=== PATIENT | female | born 1985 | race Caucasian/White ===

== ENCOUNTER 2019-09-05 18:59 | Observation (INO) | payer BC, SELFPAY ==
[2019-09-05 19:31] VITALS: BP 125/74; PULSE 90
[2019-09-05 19:45] VITALS: BP 119/71; PULSE 87
[2019-09-05 20:00] VITALS: BP 121/73; PULSE 83
--- NOTE | 2019-09-05 22:57 | OBADM ---
This patient, Thelma Witt, admitted to the OB room OB Post 117 for observation. Patient/family oriented to hospital policies and general routines including ID bracelet, bed and alarms, visiting hours, pain management, procedures, bathroom and other care routines, personal items, smoking policy, room service/diet, and visiting hours. Patient/Family are encouraged to report perceived risks to care and to ask questions if they do not understand what they are told or what they should do.
--- NOTE | 2019-09-10 07:32 | PM.OBTRLD ---
OB - Triage/Final Diagnosis Visit Information Date of evaluation: 09/05/19 Reason for evaluation: threatened labor
== END 2019-09-05 20:25 | disposition home or self-care (01) ==
PROVIDERS: Admitting Provider Obstetrics & Gynecology; Visit Provider Obstetrics & Gynecology
DX: O47.03 False labor before 37 completed weeks of gestation, third trimester (principal); Z3A.33 33 weeks gestation of pregnancy
CPT/HCPCS: G0378; G0379

== ENCOUNTER 2019-10-13 05:50 | Inpatient (IN) | payer OTHER, SELFPAY ==
[2019-10-13] VITALS (57 sets, daily range): BP systolic 94–124; BP diastolic 43–86; PULSE 65–119; RESP 16–18; TEMP 36.2–36.9; O2SAT 89–100; BMI 31.0
--- NOTE | 2019-10-13 05:55 | LDADM ---
This patient, Thelma Witt, was admitted to Labor/Delivery/Recovery 104 on 10/13/19 at 05:50. Plans for labor, pain management and were discussed with patient. Patient/family oriented to hospital policies and general routines including ID bracelet, bed and alarms, visiting hours, pain management, procedures, bathroom and other care routines, personal items, smoking policy, room service/diet and guest tray routines, infant security routines, and visiting hours. Patient/Family are encouraged to report perceived risks to care and to ask questions if they do not understand what they are told or what they should do. See OBIX for further documentation.
[2019-10-13] MEDS: LACTATED RINGERS 1,000 ML 125 ML IV CONT ×2 (06:53→09:06)
[2019-10-13 06:54] LABS: Basophils Percent Auto 0.1 % (0.2-1.2); Eosinophils Absolute Auto 0.1 K/mm3 (0-0.3); Eosinophils Percent Auto 1.2 % (0-4.4); Hematocrit 36.2 % (37.0-47.0); Hemoglobin 12.4 g/dL (12.0-15.0); Immature Granulocyte Absolute 0.04 K/mm3 (0.00-0.031); Immature Granulocyte Percent A 0.5 % (0-0.5); Lymphocytes Absolute Auto 1.77 K/mm3 (0.9-3.2); Lymphocytes Percent Auto 24.1 % (18.3-44.2); Mean Corpuscular HGB Conc 34.3 g/dl (32-36); Mean Corpuscular Hemoglobin 33.2 pg (26-34); Mean Corpuscular Volume 96.8 fl (80-100); Mean Platelet Volume 12.1 fl (7.4-10.4); Monocytes Absolute Auto 0.8 K/mm3 (0.1-0.6); Neutrophils Absolute Auto 4.6 K/mm3 (1.3-6.7); Neutrophils Percent Auto 63.1 % (45.5-73.1); Platelet Count Result 168 k/mm3 (150-375); Red Blood Count 3.74 M/mm3 (4.2-5.4); Red Cell Distribution Width 12.5 % (11.5-14.5); White Blood Count 7.3 K/mm3 (4.5-10.0)
[2019-10-13] MEDS: OXYTOCIN 30 UNITS/NS 500 ML 30 UNITS/500 ML BAG IV CONT (06:54)
--- NOTE | 2019-10-13 07:36 | WPDHPUPDATE1 ---
History and Physical Update Update Date/Time: 10/13/19 07:36 This patient is a 34 y/o multiparous female at term - AROM performed. Clear flluid. Reassuring status. History and Physical has been reviewed, including an updated exam of the patient. There are NO changes in the patient's condition. Risks, benefits, and alternatives have been discussed and questions answered. Patient agrees to proceed with procedure.
--- NOTE | 2019-10-13 08:22 | P.PNAN_ITS ---
Anes - Eval Pre Procedure Procedure: Labor epidural Date/Time: 10/13/19 08:22 Surgeon: jose luis arroyo m.d. Preop Diagnosis: pain during labor Pre Op Diagnosis: Induction of Labor Patient Data Age: 34 Gender: F Height: 1.57 m Weight: 77 kg Last Vital Signs Temp 36.2 C L 10/13/19 07:00 Pulse 75 10/13/19 08:15 BP 120/78 10/13/19 08:15 Allergies Allergy/AdvReac Type Severity Reaction Status Date / Time No Known Allergies Allergy Unverified 09/30/19 13:27 Home Medications Medication Instructions Recorded Confirmed Type PNV cmb#95-ferrous fumarate-FA 1 tablet PO DAILY 10/13/19 10/13/19 History [] Laboratory Tests 10/13/19 10/13/19 10/13/19 06:36 06:36 06:37 WBC 7.3 K/mm3 K/mm3 (4.5-10.0) RBC 3.74 M/mm3 L M/mm3 (4.2-5.4) Hgb 12.4 g/dL g/dL (12.0-15.0) Hct 36.2 % L % (37.0-47.0) MCV 96.8 fl fl (80-100) MCH 33.2 pg pg (26-34) MCHC 34.3 g/dl g/dl (32-36) RDW 12.5 % % (11.5-14.5) Plt Count 168 k/mm3 k/mm3 (150-375) MPV 12.1 fl H fl (7.4-10.4) Immature Gran % (Auto) 0.5 % % (0-0.5) Neut % (Auto) 63.1 % % (45.5-73.1) Lymph % (Auto) 24.1 % % (18.3-44.2) [place] % (Auto) 11.0 % H % (2.6-8.5) Eos % (Auto) 1.2 % % (0-4.4) Baso % (Auto) 0.1 % L % (0.2-1.2) Lymph # (Auto) 1.77 K/mm3 K/mm3 (0.9-3.2) [place] # (Auto) 0.8 K/mm3 H K/mm3 (0.1-0.6) Eos # (Auto) 0.1 K/mm3 K/mm3 (0-0.3) Baso # (Auto) 0.0 K/mm3 K/mm3 (0.0-0.1) Abs Immat Gran (auto) 0.04 K/mm3 H K/mm3 (0.00-0.031) Absolute Neuts (auto) 4.6 K/mm3 K/mm3 (1.3-6.7) Absolute Nucleated RBC 0.0 K/mm3 K/mm3 (0.0-0.012) Nucleated RBC % 0.0 % % (0.0-0.2) RPR Pending Blood Type A Positive Antibody Screen Negative Patient hx anesthesia problems: none Family hx anesthesia problems: none PMFSH Family History Family History (Updated 10/11/19 @ 15:43 by Chelo Ghosh RN) Mother FHx: kidney cancer Mother Breast cancer Social History Social History (System 09/30/19 @ 13:27 by Jessica Hale) Smoking status: Never smoker Second hand tobacco smoke exposure: Yes Substance use: never Gender identity (if verbalized by the patient): Female Sexual Orientation (if Verbalized by the Patient): Straight or Heterosexual Spiritual care concerns: No Exam Day of Procedure 10/13/19 08:22
[2019-10-13 08:50] LABS: Rapid Plasma Reagin Non-Reactive (NonReactive)
--- NOTE | 2019-10-13 12:42 | P.PCNOB_ITS ---
OB - Delivery Note Procedure Delivery date: 10/13/19 events: No Care Intrapartal events: None Induction method: AROM and per pitocin protocol Delivery monitor: external FHT and external uterine Route of delivery: Laceration description: None Estimated blood loss (mL): 100 Anesthesia type: Epidural [place] Baby Date of : 10/13/19 Time of : 12:36 Weeks of gestation at delivery: 39 Infant gender: Male presentation: vertex position: Left Occiput Anterior Placenta delivery description: Spontaneous cord vessel description: 3 Vessels score one minute: 8 score five minutes: 9
[2019-10-13] MEDS: OXYTOCIN 30 UNITS/NS 500 ML 30 UNITS/500 ML BAG 125 UNITS IV CONT (12:56)
--- NOTE | 2019-10-13 17:11 | PC.NURSE ---
1542 Pt admitted to room 287 per wheelchair from labor and delivery after vaginal delivery of viable male at [address] Lamas. Mother is a and is choosing to breast feed . /FOB present. couple oriented to room, staffing and procedures; admission folder reviewed with them. Pt's VSS and assessment WNL. Mother is planning on having a Bilateral Tubal Ligation tomorrow. Epidural in place.
--- NOTE | 2019-10-13 17:13 | PC.NURSE ---
1545 Pt reports having breast implants placed 2 years ago, and that her incisions are under her breasts.
--- NOTE | 2019-10-13 19:05 | PC.NURSE ---
Pt noted to have epidural that remains in place with all caps intact and dressing occlusive. No s/s infection noted.
[2019-10-13] MEDS: IBUPROFEN 600 MG TABLET PO (19:25)
[2019-10-13] MEDS: LANOLIN (LANSINOH) 7.5 GM CREAM 1 APPLIC TOPICAL (19:25)
[2019-10-13] MEDS: ACETAMINOPHEN 325 MG TABLET 650 MG PO (23:25)
[2019-10-13] MEDS: TETANUS,DIPHTHERIA,AC PERTUSSIS ADULT (0.5 ML) BOOSTRIX IM (23:32)
[2019-10-14] VITALS (9 sets, daily range): BP systolic 93–123; BP diastolic 54–74; PULSE 68–98; RESP 10–18; TEMP 36.3–36.7; O2SAT 96–100
[2019-10-14] MEDS: IBUPROFEN 600 MG TABLET PO ×2 (03:33→16:14)
[2019-10-14] MEDS: WITCH HAZEL 40 PADS 1 PAD TOPICAL (03:34)
[2019-10-14] MEDS: BENZOCAINE 20% AER SPR (*SP) 56 GM CAN 1 SPRAY TOPICAL (03:34)
[2019-10-14 05:27] LABS: Hematocrit 35.6 % (37.0-47.0); Hemoglobin 11.9 g/dL (12.0-15.0)
--- NOTE | 2019-10-14 07:25 | PM.OBPNVD ---
OB - PN: Subj Subjective Date/time seen: 10/14/19 07:25 Patient comments: no complaints baby status: doing well Narrative: plan BTL today OB - PN: Obj Data Labs CBC & Chem 7: 10/14/19 03:50 Labs: Laboratory Results - last 24 hr 10/13/19 10/13/19 10/14/19 06:36 06:36 03:50 Hgb 11.9 L Hct 35.6 L RPR Non-reactive Blood Type A Positive Antibody Screen Negative OB - PN A/P Plan Plan: routine care Comments: Dr. Lamas to do BTL today Time Spent With Patient Time: Total time spent is greater than 50% in coordination of care (as documented) at patient's floor/unit and/or counseling patient:
[2019-10-14] MEDS: LACTATED RINGERS 1,000 ML 30 ML IV CONT (10:35)
--- NOTE | 2019-10-14 11:23 | WPDANESEPPF ---
Anes - Initial Pre Proc Eval Procedure: Operation Date: 10/14/19 12:00 Proposed Procedures p Post- Tubal Ligation - Rocio Lamas MD Date/Time: 10/14/19 11:23 Surgeon: Rocio Lamas MD Pre Op Diagnosis: Induction of Labor Patient Data Age: 34 Gender: F Height: 5 ft 2 in Weight: 77 kg Last Vital Signs Temp 97.4 F L 10/14/19 08:57 Pulse 81 10/14/19 08:57 Resp 18 10/14/19 08:57 BP 115/71 10/14/19 08:57 Pulse Ox 100 10/14/19 08:57 Allergies Allergy/AdvReac Type Severity Reaction Status Date / Time No Known Allergies Allergy Unverified 10/14/19 10:44 Home Medications Medication Instructions Recorded Confirmed Type PNV cmb#95-ferrous fumarate-FA 1 tablet PO DAILY 10/13/19 10/13/19 History [] Laboratory Tests 10/14/19 03:50 Hgb 11.9 g/dL L g/dL (12.0-15.0) Hct 35.6 % L % (37.0-47.0) Patient hx anesthesia problems: none Family hx anesthesia problems: none PMFSH Past Medical History Medical History (Updated 10/14/19 @ 11:38 by Ovi Simmons MD) Healthy adult Family History Family History (Updated 10/11/19 @ 15:43 by Chelo Ghosh RN) Mother FHx: kidney cancer Mother Breast cancer Social History Social History (System 09/30/19 @ 13:27 by Jessica Hale) Smoking status: Never smoker Second hand tobacco smoke exposure: Yes Substance use: never Gender identity (if verbalized by the patient): Female Sexual Orientation (if Verbalized by the Patient): Straight or Heterosexual Spiritual care concerns: No Anes - Eval Final PreProcedure Day of Procedure 10/14/19 11:23 Patient weight: normal Heart: regular rate and rhythm Lungs: clear to auscultation Airway: Mallampati scale class II Neurological: alert and oriented Last oral intake: >/= 8 hours ASA classification: II Emergent: no Anesthetic plan: proceed Anesthesia type and monitoring: regional (use existing epidural; if fails will proceed with GA) epidural and standard monitoring Informed Consent: The patient's anesthetic plan and its attendant risks and benefits were discussed with the patient/family/POA. Questions were solicited and answers provided to the satisfaction of the patient/family/POA.
--- NOTE | 2019-10-14 11:57 | WPDANESEFPP ---
Anes - Eval Final PreProcedure Day of Procedure 10/14/19 11:57 Patient weight: overweight Heart: regular rate and rhythm Lungs: clear to auscultation Airway: Mallampati scale class II Neurological: alert and oriented Last oral intake: >/= 8 hours ASA classification: II Emergent: no Anesthetic plan: proceed Anesthesia type and monitoring: regional epidural and standard monitoring Informed Consent: The patient's anesthetic plan and its attendant risks and benefits were discussed with the patient/family/POA. Questions were solicited and answers provided to the satisfaction of the patient/family/POA.
--- NOTE | 2019-10-14 13:00 | PM.PROC ---
Procedure Note - Detailed Date of procedure: 10/14/19 Pre-op diagnosis: Induction of Labor Unwanted fertility, term delivered Post-op diagnosis: same Procedure performed: tubal ligation Description of procedure: The patient was taken to the operating room. She was prepped and draped in the dorsal spine position. A curvilinear infraumbilical incision was made with the scalpel. The fascia superiorly inferiorly was grasped with Allis clamps. The fascia was transected Metzenbaum scissors. The preperitoneal fat was dissected bluntly the peritoneal cavity was entered bluntly. The fascial incision was extended laterally with Metzenbaum scissors. The fallopian tubes was palpated and dressed. It was brought to the abdominal incision. It was grasped with a [place] clamp. This was in the ampullary region and a window was made in the broad ligament with cautery. The proximal distal ends of the skeletonized tube were ligated with Vicryl. Segment of ligated tube was resected with Metzenbaum scissors. The proximal distal ends of the tube were cauterized. When the tube was hemostatic that was lab to fall back into the abdomen. The tube on the contralateral side was ligated in identical fashion. The fascia was closed with an 0 Vicryl running fashion. Subcutaneous tissue was irrigated. Blood. The cauterized. Skin was closed subcuticular 4 Monocryl. It was covered with Dermabond. Sponge lap and needle counts were correct. The patient was taken the recovery room stable condition. Anesthesia: GETA Surgeon: Rocio Lamas MD Estimated blood loss (mL): 20 Drains: No Packing: No Pathology: yes Complications: No immediate complications Condition: stable Disposition: floor Findings: Normal appearing maternal anatomy
--- NOTE | 2019-10-14 13:12 | SUR.PHASEI ---
1310: Dr. Simmons at the bedside and notified about patient's headache.
--- NOTE | 2019-10-14 15:09 | WPDANLDPN2 ---
Anes-Prog Note L&D Date/Time: 10/14/19 15:09 Comfortable throughout: labor and delivery Neuraxial method: epidural Epidural/Spinal procedure site: clean & non-tender Neuro status: Neuro function grossly intact. Cardiovascular status: normal Respiratory status: normal Airway patency: baseline Mental status: baseline Post-Op hydration status: normal Vital Signs: Last Vital Signs Temp 97.5 F L 10/14/19 12:48 Pulse 74 10/14/19 13:35 Resp 14 10/14/19 13:35 BP 101/63 10/14/19 13:35 Pulse Ox 100 10/14/19 13:35 I/O: Intake & Output 10/13/19 10/14/19 10/14/19 23:59 07:59 15:59 Intake Total 500 50 Balance 500 50 Post-procedural complaints: none Patient feedback: Patient satisfied with anesthetic care.
[2019-10-15] MEDS: IBUPROFEN 600 MG TABLET PO (05:46)
--- NOTE | 2019-10-15 08:29 | PM.OBPNVD ---
OB - PN: Subj Subjective Date/time seen: 10/15/19 08:29 OB - PN: Obj Data Labs CBC & Chem 7: 10/14/19 03:50 OB - PN A/P Plan day: 2 Plan: routine care and discharge home (Follow up in 4 weeks.) Time Spent With Patient Time: Total time spent is greater than 50% in coordination of care (as documented) at patient's floor/unit and/or counseling patient: Review of Systems Review of Systems: All systems reviewed & are unremarkable except as noted in HPI and below Exam Narrative: Exam Narrative: Fundus firm and vaginal flow controlled. Const: General: comfortable Resp: Effort & Inspection: normal respiratory effort Cardio: Rate: regular rate GI: Auscultation: normal bowel sounds : General: Yes bladder normal to inspection Psych: Appearance: grossly normal Affect: normal affect Attitude: cooperative Judgement: Good judgement present (Psych)
[2019-10-15 08:45] VITALS: BP 124/70; PULSE 97; RESP 18; TEMP 36.4; O2SAT 97
[2019-10-15] MEDS: MULTIVIT/MIN/PREN/FOL AC/IRON TABLET 1 TAB PO (08:59)
--- NOTE | 2019-10-15 09:35 | PC.NURSE ---
Observed mother is able to independently latch with appropriate positioning/alignment. She denies any nipple discomfort, is feeding as required and waking infant to feed if needed. Mother reports this to be 3rd child to breastfeed. has had at least 8 effective feedings in the past 24 hours, and is currently meeting outcomes for weight, output, jaundice and feeding frequencies. Mother states she feels confident to continue effective at home. Reviewed transition to breast milk, signs of adequate intake, and engorgement/relief. Instructed to call ICP if intake/output less than required. Reviewed regular medications mother is taking. Information provided per Ashley. Reviewed community resources on the [facility] website and in the Mom/Baby guide. Information on outpatient services provided. Mother has no further questions at this time.
--- NOTE | 2019-10-15 12:00 | PC.NURSE ---
Patient instructed on viewing the discharge video Mother & Baby Care, The First Two Weeks . Patient was given the opportunity and encouraged to ask questions. Patient verbalized understanding of information shared and has been given the mother/baby guide for home reference.
[2019-10-17 09:23] VITALS: BP 119/81; PULSE 84; RESP 16; TEMP 37.2; O2SAT 99
--- NOTE | 2019-11-12 12:35 | PM.OBDSVD ---
DS: Admitting Diagnosis Admitting Diagnosis Admitting Diagnosis: Induction of Labor DS: Discharge Diagnosis Discharge Diagnosis (1) Term delivered: Code(s): O80 - Encounter for full-term uncomplicated delivery Status: Acute (2) Sterilization: Code(s): Z30.2 - Encounter for sterilization Status: Acute OB - DS: Summary OB Procedures : None OB Procedures Intrapartum: Spontaneous Vag Delivery OB Procedures: : P.P. tubal ligation Peripartum Data Infant Delivery Method: Natural Vaginal Procedures: Procedures Operation Date: 10/14/19 12:00 Actual Procedures Side Surgeon p Post- Tubal Ligation Bilateral Rocio Lamas MD complications: none Status at Discharge Functional status at discharge: independent ambulation Time Spent with Patient Time attestation: Total time spent providing and/or coordinating discharge services: DS: Data Data Completed and Pending Completed studies during hospitalization: Pending at discharge 10/14/19 12:26 Surgical [PTH] Routine Discharge Plan Discharge Attending physician on discharge: Rocio Lamas Consulting providers: Coral Johnston ; Soumya Chambers ; Manan Gayle Discharging Clinician: Soumya Chambers Patient Disposition: Home, Self-Care Activity: pelvic rest Diet: as tolerated Discharge Instructions: Education: Mom and Baby Guide and Preeclampsia Handout Given to: Mother Follow-Up: Call your delivering provider's office for an appointment to be seen in: 4 Weeks Mom and baby should come to the [facility] for the follow-up appointment. Appointment Date/Time: October 17, 2019 at 9:00 am What to expect at your follow-up visit: Physical Assessment Call [phone] if you are unable to keep your appointment time. BREAST CARE: 1. Wear a snug supportive bra. 2. For engorgement discomfort: Breast Feeding: A. Apply warm moist washcloths B. Express milk as needed to relieve engorgement C. Wear loose clothing 3. For sore nipples: A. Identify correct latch-on B. Apply warm moist washcloths before and after nursing C. Air dry nipples after nursing D. May apply Lansinoh cream to nipples ABDOMINAL INCISION: (if applicable) 1. Allow incision to air dry 2. Do NOT use lotions for powders on your incision 3. When showering, allow soap and water to run over the incision, but do not wash incision EPISIOTOMY/PERINEAL CARE: 1. Until bleeding stops, use your katya bottle after urinating 2. Change your pad frequently throughout the day 3. You may take sitz baths several times a day (fill your bathtub with warm water and soak for 20 minutes.) Do NOT bathe in the water 4. No tub baths until seen by your physician - You may shower ACTIVITY: 1. Rest as much as possible. 2. Do not exercise or lift anything heavier than your baby (such as laundry or other children.) 3. Avoid stairs or driving as much as possible. 4. Do not put anything into the vagina. No douching, tampons, or sexual activity until seen by physician. NOTIFY PHYSICIAN IF YOU HAVE ANY QUESTIONS OR IF ANY OF THE FOLLOWING SYMPTOMS OCCUR: 1. If your incision becomes red, swollen, or more painful than what you have experienced in the hospital. 2. If your vaginal bleeding becomes foul smelling. 3. If your vaginal bleeding becomes more heavy than a period or if your bleeding changes from pink to bright red. However, you may pass an occasional walnut-sized clot once or twice for the first week . 4. If you experience a sharp, shooting pain in you calves. 5. If you discover a hard, reddened area on your breast or if you experience flu-like symptoms. DIET: 1. Eat regular, well-balanced meals. 2. Drink plenty of fluids daily. If , drink to thirst. Stand Alone Forms: General Discharge Information F
--- NOTE | 2019-11-12 12:36 | PM.IMHP ---
H&P: HPI History of Present Illness Date/Time: 11/12/19 12:36 patient is a 34-year-old female presents for female sterilization. We are 10 to perform tubal ligation. She understands the procedure. She is 1 day from a a vaginal . She has no complaints. Chief complaint: Induction of Labor Narrative: Thelma Witt is a 34 year old female Review of Systems Constitutional: Constitutional: Reports no additional constitutional complaints, Denies fatigue, Denies headache(s), Denies lethargy and Denies weakness Eyes: Eyes: Reports no additional eye complaints, Denies blurry vision and Denies photophobia ENT: Reports as per HPI, Denies headache(s) and Denies neck pain Cardiovascular: Cardiovascular: Denies chest pain, Denies diaphoresis, Denies leg edema, Denies palpitations and Denies dyspnea Respiratory: Respiratory: Denies hemoptysis, Denies dyspnea and Denies wheezing Gastrointestinal: Gastrointestinal: Denies abdominal pain, Denies melena, Denies bloating, Denies hematochezia, Denies nausea and Denies vomiting Genitourinary: Genitourinary: Reports no additional female genitourinary complaints Musculoskeletal: Musculoskeletal: Denies joint swelling, Denies neck pain, Denies numbness and Denies stiffness Neurologic: Denies Abnormal speech present, Denies confusion, Denies headache(s), Denies numbness and Denies weakness Psychiatric: Psychiatric: Denies anxiety, Denies confusion, Denies depression, Denies homicidal ideation and Denies suicidal ideation Endocrine: Endocrine: Denies fatigue and Denies palpitations Allergic/Immunologic: Allergic/Immunologic: Denies wheezing PMFSH Past Medical History Medical History (Updated 11/12/19 @ 12:35 by Rocio Lamas MD) Healthy adult Family History Family History (Updated 10/11/19 @ 15:43 by Chelo Ghosh RN) Mother FHx: kidney cancer Mother Breast cancer Social History Social History (System 09/30/19 @ 13:27 by Jessica Hale) Smoking status: Never smoker Second hand tobacco smoke exposure: Yes Substance use: never Gender identity (if verbalized by the patient): Female Sexual Orientation (if Verbalized by the Patient): Straight or Heterosexual Spiritual care concerns: No Meds Home Medications and Allergies Home Medications Medication Instructions Recorded Confirmed Type PNV cmb#95-ferrous fumarate-FA 1 tablet PO DAILY 10/13/19 10/13/19 History [] Allergies Allergy/AdvReac Type Severity Reaction Status Date / Time No Known Allergies Allergy Unverified 10/14/19 10:44 Exam Const: General: healthy appearing, comfortable and no acute distress; No confusion Orientation/consciousness: No confusion Eyes: Direct Ophthalmoscopy: No photophobia Resp: Auscultation: clear to auscultation bilaterally, no rales, no rhonchi and no wheezes Cardio: Rate: regular rate Heart sounds: no click, no murmurs and no rubs GI: Inspection: non-distended GI Palp: No abdominal tenderness Auscultation: normal bowel sounds Neuro: General: No confusion Speech: No Abnormal speech present Extrem: General: normal to inspection, no pedal edema and no calf tenderness Assessment and Plan Assessment and plan (1) Term delivered: Code(s): O80 - Encounter for full-term uncomplicated delivery Status: Acute (2) Sterilization: Code(s): Z30.2 - Encounter for sterilization Status: Acute Additional Plan This patient is a 34-year-old multip who is 1 day from a vaginal . We have agreed to proceed with tubal ligation. She understands the risks, benefits, and alternatives. She has completed the informed consent process is regular proceed.
== END 2019-10-15 12:56 | disposition home or self-care (01) | DRG 798 ==
LOC: ANHLDR 14:37 → ANHOB2 15:49
PROVIDERS: Admitting Provider Obstetrics & Gynecology; Visit Provider Obstetrics & Gynecology
PROC: 0UB70ZZ Excision of Bilateral Fallopian Tubes, Open Approach (ICD-10-PCS; CPT 58605; principal; 2019-10-14 12:00)
DX: O69.81X0 Labor and delivery complicated by cord around neck, without compression, not applicable or unspecified (principal); Z37.0 Single live birth; Z3A.39 39 weeks gestation of pregnancy; O36.8330 Maternal care for abnormalities of the fetal heart rate or rhythm, third trimester, not applicable or unspecified; Z30.2 Encounter for sterilization
CPT/HCPCS: 36415; 85014; 85018; 85025; 86592; 86850; 86900; 86901; 88302; 90715; A9270; J2590; J2704; J2795; J7120

== ENCOUNTER 2020-11-12 08:47 | Outpatient (RCR) | payer OTHER, SELFPAY ==
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
--- NOTE | 2020-11-16 07:48 | PCOTNOTE ---
Patient called & cancelled scheduled appointment this date due to having a sick child at home.
--- NOTE | 2020-11-18 08:28 | PCOTNOTE ---
Patient called & cancelled scheduled appointment this date due to having a sick child at home.
--- NOTE | 2020-11-23 08:16 | PCOTNOTE ---
Patient called & cancelled scheduled appointment this date due to being sick.
--- NOTE | 2020-11-30 08:08 | PCOTNOTE ---
Late note for 9/2 - Pt called and cancelled due to being sick.
--- NOTE | 2020-11-30 08:08 | PCOTNOTE ---
Patient did not show up for scheduled appointment this date. Called patient and left voicemail informing patient of her next appt.
--- NOTE | 2020-12-02 09:34 | PCOTNOTE ---
OCCUPATIONAL THERAPY DISCHARGE NOTIFICATION 12/02/20 Patient:Thelma Witt Date of :1985 Patient has not returned for any further treatments since her initial OT evaluation on 11/12/2020, therefore she will be discharged at this time. Patient?s initial visit was on 11/12/2020 and she had a total of 0 follow up visits. Patient cancelled 4 visits and no showed 2 visits. Therapy goals have not been met. Thank you for referring this patient to [facility]. Please review, sign, date and return this discharge summary TIANNA. I have been updated about the patient's current status and I agree with discharge from the above service at this time. Referring Physician Date Referring Provider: Chad LancasterMD
== END 2020-12-02 17:43 | disposition home or self-care (01) ==
LOC: ANHOT 08:47
PROVIDERS: Visit Provider Orthopaedic Surgery Hand Surgery
DX: S52.501D Unspecified fracture of the lower end of right radius, subsequent encounter for closed fracture with routine healing (principal)
CPT/HCPCS: 97110; 97165

== ENCOUNTER 2023-04-19 06:35 | Outpatient (CLI) | payer OTHER, SELFPAY ==
--- NOTE | ~2023-04-19 | MR_ITS ---
MRI of the brain Clinical History: Migraine Technique: Axial and sagittal T1-weighted images were acquired. These were followed by axial T2-weigh linette, diffusion weighted, gradient, and FLAIR images. Findings: There is no acute infarct, intracranial hemorrhage, or mass lesion inside. No abnormal sign al seen in the brain parenchyma. Ventricles and subarachnoid spaces are unremarkable. Orbits are unremarkable. There is extensive righ t maxillary sinus disease. Remaining paranasal sinuses and mastoid air cells are clear. Major intracr anial flow voids are intact. Sagittal midline structures are intact. IMPRESSION: No intracranial abnormality. Right maxillary sinus disease. Reviewed, dictated and finalized at [facility]. Y SCIENTIST
== END 2023-04-19 06:36 | disposition home or self-care (01) ==
PROVIDERS: PCP Nurse Practitioner Family; Visit Provider Nurse Practitioner Family
DX: J32.0 Chronic maxillary sinusitis (principal); G43.909 Migraine, unspecified, not intractable, without status migrainosus
CPT/HCPCS: 70551